=== PATIENT | female | born 1965 | race Caucasian/White ===

== ENCOUNTER 2017-10-07 09:56 | Emergency (ER) | payer MEDICAID ==
[~2017-10-07] VITALS: Ht 157.5 cm; Wt 84.4 kg
[2017-10-07 10:05] VITALS: Ht 157.5 cm; Wt 84.4 kg
[2017-10-07 11:48] VITALS: BP 139/85
== END 2017-10-07 11:48 | disposition home or self-care (01) ==
LOC: ED 09:56
DX: M17.11 Unilateral primary osteoarthritis, right knee (principal); E66.9 Obesity, unspecified
CPT/HCPCS: J1100; J1885

== ENCOUNTER 2017-10-16 07:42 | Emergency (ER) | payer MEDICAID ==
[~2017-10-16] VITALS: Ht 157.5 cm; Wt 94.3 kg
[2017-10-16 07:48] VITALS: Ht 157.5 cm; Wt 94.3 kg
[2017-10-16 08:28] LABS: microscopic required? NO
[2017-10-16 08:37] LABS: PLATELET COUNT 294 x10^3mcL (130-400); RED CELL DISTRIBUTION WIDTH 13.6 % (11.5-14.5)
[2017-10-16 08:40] LABS: UA SPECIFIC GRAVITY 1.025 (1.005-1.035); urine erythrocyte NEGATIVE (NEGATIVE)
[2017-10-16 08:47] LABS: CALCIUM 8.9 mg/dL (8.5-10.1); CARBON DIOXIDE 26.8 mmol/L (21-32); CHLORIDE SERUM 108 mmol/L (98-107); CREATININE SERUM 0.6 mg/dL (0.6-1.0); GFR1 > 60 mL/min; GLUCOSE SERUM 108 mg/dL (74-106); POTASSIUM SERUM 4.5 mmol/L (3.5-5.1); SODIUM SERUM 142 mmol/L (136-145)
[2017-10-16 08:51] LABS: ALBUMIN 3.6 g/dL (3.4-5.0); ALKALINE PHOSPHATASE 53 U/L (46-116); ALT/SGPT 25 U/L (14-59); AST/SGOT 13 U/L (15-37); BILIRUBIN TOTAL 0.4 mg/dL (0.20-1.00); CHOLESTEROL 198 mg/dL (<200); CHOLESTEROL/HDL RATIO 3.7; HDL CHOLESTEROL 53 mg/dL (40-60); TOTAL PROTEIN, SERUM 6.9 g/dL (6.4-8.2); TRIGLYCERIDES 130 mg/dL (<150)
[2017-10-16 10:04] LABS: ERYTHROCYTE SED RATE 14 mm/hr (0-30)
[2017-10-16 11:12] VITALS: BP 130/72
== END 2017-10-16 11:12 | disposition home or self-care (01) ==
LOC: ED 07:42
PROVIDERS: Emergency Medicine
DX: S30.0XXA Contusion of lower back and pelvis, initial encounter (principal); X58.XXXA Exposure to other specified factors, initial encounter; Y93.89 Activity, other specified; Y92.89 Other specified places as the place of occurrence of the external cause; Y99.8 Other external cause status
CPT/HCPCS: 36415; 87804

== ENCOUNTER 2020-08-24 10:46 | Inpatient (IN) | payer OTHER, SELFPAY ==
[~2020-08-24] VITALS: Ht 152.4 cm; Wt 90.5 kg
[2020-08-24 10:57] VITALS: Ht 152.4 cm; Wt 90.5 kg
[2020-08-24 11:52] LABS: BASOPHIL % 0.3 % (0.2-1.3); PLATELET COUNT 264 x10^3mcL (179-408); RED CELL DISTRIBUTION WIDTH 13.4 % (12.3-17.7)
[2020-08-24 12:17] LABS: CALCIUM 9.2 mg/dL (8.5-10.1); CARBON DIOXIDE 25.6 mmol/L (21-32); CHLORIDE SERUM 106 mmol/L (98-107); CREATININE SERUM 0.6 mg/dL (0.6-1.0); GFR1 > 60 mL/min; GLUCOSE SERUM 123 mg/dL (74-106); POTASSIUM SERUM 3.6 mmol/L (3.5-5.1); SODIUM SERUM 140 mmol/L (136-145)
[2020-08-24 12:20] LABS: ALBUMIN 3.5 g/dL (3.4-5.0); ALKALINE PHOSPHATASE 57 U/L (46-116); ALT/SGPT 30 U/L (14-59); AST/SGOT 25 U/L (15-37); BILIRUBIN TOTAL 0.37 mg/dL (0.20-1.00); C REACTIVE PROTEIN 3.7 mg/dL (<=0.9); LACTIC DEHYDROGENASE (LDH) 262 U/L (100-190); LIPASE 198 IU/L (73-393); TOTAL PROTEIN, SERUM 7.6 g/dL (6.4-8.2)
[2020-08-24 14:32] VITALS: BP 119/69
[2020-08-24 16:15] VITALS: BP 130/76
[2020-08-24 21:07] VITALS: BP 107/53
[2020-08-25 05:14] VITALS: BP 135/60
[2020-08-25 08:14] VITALS: BP 117/59
[2020-08-25 08:24] LABS: BASOPHIL % 0.3 % (0.2-1.3); PLATELET COUNT 269 x10^3mcL (179-408); RED CELL DISTRIBUTION WIDTH 13.1 % (12.3-17.7)
[2020-08-25 08:30] LABS: CALCIUM 8.8 mg/dL (8.5-10.1); CARBON DIOXIDE 27.5 mmol/L (21-32); CHLORIDE SERUM 106 mmol/L (98-107); CHOLESTEROL 187 mg/dL (<200); CHOLESTEROL/HDL RATIO 4.9; CREATININE SERUM 0.6 mg/dL (0.6-1.0); GFR1 > 60 mL/min; GLUCOSE SERUM 98 mg/dL (74-106); HDL CHOLESTEROL 38 mg/dL (40-60); MAGNESIUM 2.1 mg/dL (1.8-2.4); SODIUM SERUM 142 mmol/L (136-145); TRIGLYCERIDES 160 mg/dL (<150)
[2020-08-25 08:54] LABS: BILIRUBIN DIRECT 0.08 mg/dL (0.0-0.2); BILIRUBIN TOTAL 0.4 mg/dL (0.20-1.00); TOTAL PROTEIN, SERUM 6.7 g/dL (6.4-8.2)
[2020-08-25 09:01] LABS: ALBUMIN 3.1 g/dL (3.4-5.0)
[2020-08-25 12:00] VITALS: BP 111/60
[2020-08-25 16:11] VITALS: BP 123/62
[2020-08-26 08:30] VITALS: BP 135/79
[2020-08-26 08:48] LABS: BASOPHIL % 0.3 % (0.2-1.3); PLATELET COUNT 298 x10^3mcL (179-408); RED CELL DISTRIBUTION WIDTH 12.8 % (12.3-17.7)
[2020-08-26 09:17] LABS: CHLORIDE SERUM 107 mmol/L (98-107); CREATININE SERUM 0.6 mg/dL (0.6-1.0); GFR1 > 60 mL/min; GLUCOSE SERUM 132 mg/dL (74-106); MAGNESIUM 2.1 mg/dL (1.8-2.4); SODIUM SERUM 143 mmol/L (136-145)
[2020-08-26 09:20] LABS: BILIRUBIN DIRECT 0.07 mg/dL (0.0-0.2); BILIRUBIN TOTAL 0.24 mg/dL (0.20-1.00); TOTAL PROTEIN, SERUM 6.7 g/dL (6.4-8.2)
[2020-08-26 09:31] LABS: ALBUMIN 2.9 g/dL (3.4-5.0)
[2020-08-26 13:40] VITALS: BP 139/71
[2020-08-26 18:19] VITALS: BP 107/53
[2020-08-26 20:00] VITALS: BP 106/44
[2020-08-27 04:40] VITALS: BP 119/52
[2020-08-27 09:30] LABS: BASOPHIL % 0.3 % (0.2-1.3); PLATELET COUNT 345 x10^3mcL (179-408); RED CELL DISTRIBUTION WIDTH 13.1 % (12.3-17.7)
[2020-08-27 09:51] VITALS: BP 117/54
[2020-08-27 10:04] LABS: ALKALINE PHOSPHATASE 50 U/L (46-116); ALT/SGPT 28 U/L (14-59); AST/SGOT 11 U/L (15-37); BILIRUBIN DIRECT 0.08 mg/dL (0.0-0.2); BILIRUBIN TOTAL 0.32 mg/dL (0.20-1.00); CARBON DIOXIDE 25.2 mmol/L (21-32); CHLORIDE SERUM 107 mmol/L (98-107); CREATININE SERUM 0.6 mg/dL (0.6-1.0); GFR1 > 60 mL/min; GLUCOSE SERUM 99 mg/dL (74-106); MAGNESIUM 2.2 mg/dL (1.8-2.4); POTASSIUM SERUM 4.3 mmol/L (3.5-5.1); SODIUM SERUM 144 mmol/L (136-145); TOTAL PROTEIN, SERUM 6.7 g/dL (6.4-8.2)
[2020-08-27 12:23] VITALS: BP 97/41
[2020-08-27] MEDS ORDERED: TAM75 PO (14:08)
[2020-08-27] MEDS ORDERED: ELIQUIS5 MG PO (14:09)
[2020-08-27] MEDS ORDERED: ZINC SULFATE220 MG PO (14:09)
[2020-08-27] MEDS ORDERED: VITC PO (14:09)
[2020-08-27] MEDS ORDERED: DECADRON6 MG PO (14:11)
[2020-08-27 15:37] VITALS: BP 97/41
[2020-08-27 20:45] VITALS: BP 115/57
[2020-08-28 05:20] VITALS: BP 103/84
[2020-08-28 07:22] LABS: ALKALINE PHOSPHATASE 53 U/L (46-116); ALT/SGPT 41 U/L (14-59); AST/SGOT 24 U/L (15-37); BILIRUBIN DIRECT 0.09 mg/dL (0.0-0.2); BILIRUBIN TOTAL 0.3 mg/dL (0.20-1.00); CALCIUM 8.3 mg/dL (8.5-10.1); CARBON DIOXIDE 25.7 mmol/L (21-32); CHLORIDE SERUM 107 mmol/L (98-107); CREATININE SERUM 0.6 mg/dL (0.6-1.0); GFR1 > 60 mL/min; GLUCOSE SERUM 105 mg/dL (74-106); MAGNESIUM 2.2 mg/dL (1.8-2.4); SODIUM SERUM 145 mmol/L (136-145); TOTAL PROTEIN, SERUM 6.6 g/dL (6.4-8.2)
[2020-08-28 07:34] LABS: BASOPHIL % 0.2 % (0.2-1.3); PLATELET COUNT 375 x10^3mcL (179-408); RED CELL DISTRIBUTION WIDTH 13.1 % (12.3-17.7)
[2020-08-28 08:17] VITALS: BP 108/51
[2020-08-28 11:55] VITALS: BP 120/64
[2020-08-28 17:08] VITALS: BP 115/57
[2020-08-28 19:46] VITALS: BP 104/53
[2020-08-29 04:48] VITALS: BP 149/82
[2020-08-29 07:20] LABS: PLATELET COUNT 390 x10^3mcL (179-408); RED CELL DISTRIBUTION WIDTH 12.9 % (12.3-17.7)
[2020-08-29 07:58] LABS: CARBON DIOXIDE 24.3 mmol/L (21-32); CHLORIDE SERUM 107 mmol/L (98-107); CREATININE SERUM 0.6 mg/dL (0.6-1.0); GFR1 > 60 mL/min; GLUCOSE SERUM 104 mg/dL (74-106); MAGNESIUM 2.4 mg/dL (1.8-2.4); POTASSIUM SERUM 4.1 mmol/L (3.5-5.1); SODIUM SERUM 142 mmol/L (136-145)
[2020-08-29 09:01] VITALS: BP 110/56
[2020-08-29 11:11] LABS: MONOCYTE 8 % (0-7); SEGMENTED NEUTROPHILS 72 % (37-75)
[2020-08-29 11:13] LABS: rbc morphology (normal/abnorm) NORMAL (NORMAL)
[2020-08-29 11:19] LABS: PLATELET MORPHOLOGY PLATELETS NORMAL
[2020-08-29 12:31] VITALS: BP 160/81
== END 2020-08-29 16:06 | disposition home or self-care (01) | DRG 137 ==
LOC: ED 10:46 → DU 13:03 → MU 13:03 → DU 08-25 06:36
PROVIDERS: Emergency Medicine; ADMIT Hospitalist; ATTEND Hospitalist
PROC: XW033E5 Introduction of Remdesivir Anti-infective into Peripheral Vein, Percutaneous Approach, New Technology Group 5 (ICD-10-PCS; principal; 2020-08-25)
DX: U07.1 COVID-19 (principal); J96.01 Acute respiratory failure with hypoxia; J12.82 Pneumonia due to coronavirus disease 2019; E78.00 Pure hypercholesterolemia, unspecified
CPT/HCPCS: 36600; 83880; 85378; 87804; G0378; J0456; J0696; J1100; J1644; J2270; J2405; J7030; U0003